=== PATIENT | female | born 1980 | race American Indian/Alaskan Native ===

== ENCOUNTER 2021-12-06 07:28 | Inpatient (IN) | payer SELFPAY ==
[2021-12-02 10:50] LABS: Hematocrit 31.5 % (30.3-42.9); Hemoglobin 9.6 gm/dl (10.1-14.3); Mean Corpuscular HGB Conc 30 % (30-34); Mean Corpuscular Volume 71 fl (79-97); Platelet Count 167 K/mm3 (140-440); Red Blood Count 4.42 M/mm3 (3.65-5.03)
[2021-12-06] MEDS ORDERED: LACTATED RINGERS 1,000 ML ONE ×3 (08:46→12:10)
[2021-12-06] MEDS ORDERED: BICITRA ORAL LIQD 30ML PO NR (08:58)
[2021-12-06] MEDS ORDERED: FAMOTIDINE 20 MG/2 ML INJ IV NR (08:58)
[2021-12-06] MEDS ORDERED: METOCLOPRAMIDE 10 MG/2 ML INJ IV NR (08:58)
[2021-12-06] MEDS ORDERED: LACTATED RINGERS 1,000 ML IV SCH (09:00)
[2021-12-06] MEDS ORDERED: OXYTOCIN DRIP 30 UNITS/500 ML BAG IV SCH ×2 (09:30→12:00)
[2021-12-06 09:56] LABS: Basophils % (Auto) 0.4 % (0.0-1.8); Eosinophils % (Auto) 0.6 % (0.0-4.3); Hematocrit 32.4 % (30.3-42.9); Hemoglobin 9.9 gm/dl (10.1-14.3); Lymphocytes # (Auto) 1.8 K/mm3 (1.2-5.4); Lymphocytes % (Auto) 22.3 % (13.4-35.0); Mean Corpuscular HGB Conc 31 % (30-34); Mean Corpuscular Volume 71 fl (79-97); Monocytes # (Auto) 0.8 K/mm3 (0.0-0.8); Monocytes % (Auto) 9.6 % (0.0-7.3); Platelet Count 153 K/mm3 (140-440); Red Blood Count 4.54 M/mm3 (3.65-5.03)
[2021-12-06] MEDS ORDERED: PRENATAL VIT27-FE FUMARATE-FOLIC ACID VIT TAB PO SCH (10:00)
[2021-12-06] MEDS ORDERED: ceFAZolin/Water 2 GM/20 ML 2 GM/20 ML SYRINGE IV NR (10:00)
--- NOTE | 2021-12-06 10:04 | Anesthesia Consultation ---
Anesthesia Consult and Med Hx Date of service: 12/06/21 - Airway Anesthetic Teeth Evaluation: Good ROM Head & Neck: Adequate Mental/Hyoid Distance: Adequate Mallampati Class: Class II Intubation Access Assessment: Probably Good - Pulmonary Exam CTA: Yes - Cardiac Exam Cardiac Exam: RRR - Pre-Operative Health Status ASA Pre-Surgery Classification: ASA2 Proposed Anesthetic Plan: Spinal - Pulmonary Hx Asthma: No - Cardiovascular System Hx Hypertension: No - Central Nervous System Hx Seizures: No Hx Psychiatric Problems: No - Endocrine Hx Renal Disease: No Hx Hypothyroidism: No Hx Hyperthyroidism: No - Hematic Hx Anemia: No Hx Sickle Cell Disease: No - Other Systems Hx Alcohol Use: No Hx Cancer: No
--- NOTE | 2021-12-06 10:04 | Anesthesia Day of Surgery ---
Anesthesia Day of Surgery - Day of Surgery Patient Examined: Yes Patient H&P Reviewed: Yes Patient is NPO: Yes
--- NOTE | 2021-12-06 10:21 | History and Physical Report ---
History of Present Illness Date of examination: 12/06/21 Date of admission: 12/06/21 07:28 12/06 Chief complaint: Pt. here for Csection History of present illness: 41yo EDC 12/10 @ 39 3/7 weeks. Pt. for repeat Csection. Good movement. No VB, LOF or ctx Past History Past Medical History: no pertinent history Past Surgical History: section (2014) [employer] [employer] [facility] History: abnormal PAP smear Family/Genetic History: none Social history: no significant social history - Obstetrical History Expected Date of Delivery: 12/10/21 Actual Gestation: 39 Week(s) 3 Day(s) : 2 Para: 1 Hx # Term Pregnancies: 1 Number of Living Children: 1 Medications and Allergies Allergies Allergy/AdvReac Type Severity Reaction Status Date / Time No Known Allergies Allergy Unverified 11/30/21 11:22 Home Medications Medication Instructions Recorded Confirmed Last Taken Type Vit-Fe Fumar-FA [ 1 tab PO QDAY 11/30/21 11/30/21 Unknown History Vitamin] Active Meds: Active Medications Citric Acid/Sodium Citrate (Bicitra Oral Liqd 30ml) 30 ml PO ONCE NR Stop: 12/06/21 13:00 Last Admin: 12/06/21 09:31 Dose: 30 ml Famotidine (Famotidine 20 Mg/2 Ml Inj) 20 mg IV ONCE NR Stop: 12/06/21 13:00 Last Admin: 12/06/21 09:31 Dose: 20 mg Lactated Ringer's (Lactated Ringers) 1,000 mls @ 2,250 mls/hr IV PREOP JUSTIN Stop: 12/07/21 09:27 Last Admin: 12/06/21 09:05 Dose: 2,250 mls/hr Oxytocin/Sodium Chloride (Pitocin/Ns 30 Unit/500ml) 30 units in 500 mls @ 0 mls/hr IV TITR JUSTIN; Protocol Stop: 12/07/21 09:00 Cefazolin Sodium (Ancef/Sterile Water 2 Gm/20 Ml) 2 gm in 20 mls @ 80 mls/hr IV PREOP NR; Protocol Stop: 12/06/21 13:00 Metoclopramide HCl (Metoclopramide 10 Mg/2 Ml Inj) 10 mg IV ONCE NR Stop: 12/06/21 13:00 Last Admin: 12/06/21 09:31 Dose: 10 mg Multivitamins/Iron/Calcium ( [id number] Fumarate-Folic Acid Vit Tab) 1 each PO QDAY JUSTIN Review of Systems All systems: negative - Vital Signs Vital signs: Vital Signs Temp Pulse Resp BP Pulse Ox 98.1 F 105 H 16 118/73 99 12/02/21 10:30 12/02/21 10:30 12/02/21 10:30 12/02/21 10:30 12/02/21 10:30 Temp Pulse Resp BP Pulse Ox 98.2 F 88 16 127/80 98 12/06/21 09:42 12/06/21 08:38 12/02/21 10:30 12/06/21 07:57 12/06/21 08:38 - Physical Exam Abdomen: Positive: normal appearance Uterus: Positive: enlarged - Obstetrical FHR: category 1 Uterine Contraction Pattern: Absent Results Result Diagrams: 12/06/21 09:00 Abnormal lab results 12/06/21 Range/Units 09:00 Hgb 9.9 L (10.1-14.3) gm/dl MCV 71 L (79-97) fl MCH 22 L (28-32) pg [place] % (Auto) 9.6 H (0.0-7.3) % All other labs normal. Assessment and Plan A IUP @ 39 3/7 weeks Previous Csection P Repeat Informed consent obtained
[2021-12-06] MEDS ORDERED: ceFAZolin/STERILE WATER 2 GM/20 ML SYRINGE IV ONE (10:30)
[2021-12-06] MEDS ORDERED: KETOROLAC 30 MG/1 ML INJ ONE (10:38)
[2021-12-06] MEDS ORDERED: BUPIVACAINE/PF (0.5%) 5 MG/1 ML 30 ML VIAL INFILTRATI ONE (10:38)
[2021-12-06] MEDS ORDERED: dexAMETHasone 20 MG/5 ML VIAL ONE (10:38)
[2021-12-06] MEDS ORDERED: PHENYLEPHRINE/NS 1,000 MCG/10 ML SYRINGE (OR USE) IV ONE (10:38)
[2021-12-06] MEDS ORDERED: ONDANSETRON 4 MG/2 ML INJ ONE (10:38)
[2021-12-06] MEDS ORDERED: SODIUM CHLORIDE 0.9% IRR 1,500 ML BOTTLE IR ONE (10:40)
[2021-12-06] MEDS ORDERED: WATER FOR IRRIG STERILE 1,500 ML BOTTLE IR ONE (10:40)
[2021-12-06] MEDS ORDERED: ePHEDrine SULFATE 50 MG/1 ML INJ ONE (11:36)
--- NOTE | 2021-12-06 13:36 | Procedure Note ---
OB Delivery Note - Section Postop diagnosis: same section procedure: repeat low transverse Disposition: PACU Complications: none Narrative: Patient for repeat section. Informed consent was obtained. She was taken to the operating room. She was placed in the supine position. She was prepped and draped in the normal sterile fashion. A Woodson catheter was placed. Timeout was done. A Pfannenstiel skin incision was made in the old incision scar. This was then carried down to the underlying layer of fascia. Several bleeding points were noted in the subcutaneous fat which were caute rized. The fascia was incised in the midline and extended laterally using the Stone scissors. Eulogio clamps were placed on the superior aspect of the incision. The stone scissors was used to dissect the rectus muscle from the fascia. Attention was then turned to the lower aspect of the incision. The fascia was grasped with Eulogio clamps elevated and the rectus muscle dissected off. The rectus muscle was then opened using the scalpel. The rectus muscle was then stretched manually. The peritoneum was adherent to the rectus muscle. A bladder blade was placed over the bladder. The vesicouterine peritoneum was then dissected off with the Metzenbaum scissors. The bladder blade was then placed over the bladder flap. A transverse incision was made in the lower uterine segment. Membranes were ruptured. Clear fluid was noted. The infant was noted to be in the vertex position. The infant's head was then delivered without complication. The nares and mouth were suctioned. The remainder of the infant was then delivered without complication. A nuchal cord was reduced. After a 1 minute delayed, the chord. was clamped and cut. The infant was then handed over to the NICU nurses. The placenta was then delivered. The uterus was removed and wrapped in a laparotomy sponge. The uterine incision was then closed with 0 Vicryl suture. 0 Vicryl suture was used to place figures of 8 at all bleeding points. Excellent hemostasis was achceived. The uterus was then replaced into the abdomen. The gutters were cleared of all clots and debris. The posterior cul-de-sac was irrigated and clear of all debris. The uterine incision was then inspected. No bleeding was noted. Surgicel was placed over the incision. All laps and instruments were removed from the abdomen. The muscle was reapproximated with 2-0 Vicryl. The fascia in the midline was noted to be torn vertically. This was repaired using 0 Vicryl suture. 0 Vicryl suture was used to close the fascia in a running fashion. There was some difficulty closing the fascia at the point where there was a tear in the fascia. The subcutaneous fat was closed with 3-0 Vicryl. The skin was closed with leticia. Patient tolerated the procedure well. Sponge laps and needle counts were correct x2. EBL 960 ml Fluids 2 liters Urine output 200ml - Infant A at 1 minute: 8 at 5 minutes: 9 Infant Gender: Female
[2021-12-06] MEDS ORDERED: NALOXONE 0.4 MG/1 ML INJ IV PRN (14:00)
[2021-12-06] MEDS ORDERED: LANOLIN/ZINC/DIMETHICONE (LANSINOH) 7 GM TP PRN (14:00)
[2021-12-06] MEDS ORDERED: WITCH HAZEL/ GLYCERIN PAD TP PRN (14:00)
[2021-12-06] MEDS ORDERED: ACETAMINOPHEN 325 MG TAB PO PRN (15:30)
[2021-12-06] MEDS ORDERED: diphenhydrAMINE 25 MG CAP PO PRN (15:30)
[2021-12-06] MEDS ORDERED: ONDANSETRON 4 MG/2 ML INJ IV PRN (15:30)
[2021-12-06] MEDS ORDERED: PROMETHAZINE 25 MG RECT SUPP PR PRN (15:30)
[2021-12-06] MEDS ORDERED: D5W/LACTATED RINGERS 1,000 ML IV SCH (17:30)
[2021-12-06] MEDS: IBUPROFEN 800 MG TAB PO SCH (17:36)
[2021-12-06] MEDS ORDERED: MAGNESIUM HYDROXIDE (MOM) ORAL LIQD UDC PO PRN (22:00)
[2021-12-07] MEDS: oxyCODONE /ACETAMINOPHEN 5-325MG TAB PO PRN ×2 (00:47→17:48)
[2021-12-07 03:21] LABS: Hematocrit 26.4 % (30.3-42.9); Hemoglobin 8.2 gm/dl (10.1-14.3)
[2021-12-07] MEDS: IBUPROFEN 800 MG TAB PO SCH ×3 (05:33→20:30)
[2021-12-07 07:50] LABS: Hematocrit 24.5 % (30.3-42.9); Hemoglobin 7.8 gm/dl (10.1-14.3)
[2021-12-07] MEDS: PRENATAL VIT27-FE FUMARATE-FOLIC ACID VIT TAB PO SCH ×2 (10:58→10:59)
--- NOTE | 2021-12-07 15:38 | Progress Note ---
Assessment and Plan POD#1 C/S with worsening anemia, symptoms of tiredness, possible anterior wall hematoma 1. Will do CT with contrast of abd and pelvis and possible drainage by IR if same present 2. repeat cbc and transfuse if hgb less than 7 3. Routine post op care Plan of care discussed with pt. All questions encouraged and answered Subjective Date of service: 12/07/21 Principal diagnosis: POD#1 repeat c/s with severe anemia, distended abdomen Interval history: pt admits to feeling tired, passing flatus and pain controlled with meds. Vag bleed like a period. Tolerates regular diet. Objective - Constitutional Vitals: Vital Signs - 12hr 12/07/21 12/07/21 12/07/21 05:04 06:50 08:30 Temperature 98.0 F Pulse Rate 89 92 H Respiratory 18 Rate Blood Pressure 92/67 Blood Pressure 128/70 [Left] O2 Sat by Pulse 96 Oximetry O2 Sat by Pulse 98 Oximetry [ Bilateral Throughout] 12/07/21 12/07/21 08:50 10:59 Temperature 98.2 F Pulse Rate 99 H Respiratory 20 20 Rate Blood Pressure Blood Pressure 128/70 [Left] O2 Sat by Pulse 96 Oximetry O2 Sat by Pulse Oximetry [ Bilateral Throughout] General appearance: Present: well-nourished - Neck Neck: normal ROM - Respiratory Respiratory effort: normal - Breasts Breasts: deferred - Cardiovascular Rhythm: regular Extremities: No edema - Gastrointestinal General gastrointestinal: Present: distended (with large fluid shift in abdomen), other (dressing C/D/I) - Genitourinary Female genitourinary: other (moderate dark red blood per vagina; could not locate fundus thru distended abdomen with possible fluid) - Integumentary Integumentary: warm, dry - Neurologic Neurologic: moves all extremities - Psychiatric Psychiatric: cooperative - Labs CBC & Chem 7: 12/07/21 15:13 Labs: Abnormal lab results 12/07/21 12/07/21 Range/Units 03:10 06:00 Hgb 8.2 L 7.8 L (10.1-14.3) gm/dl Hct 26.4 L D 24.5 L (30.3-42.9) % Medications & Allergies - Medications Allergies/Adverse Reactions: Allergies No Known Allergies Allergy (Unverified 11/30/21 11:22) Home Medications: Home Medications Medication Instructions Recorded Confirmed Last Taken Type Vit-Fe Fumar-FA [ 1 tab PO QDAY 11/30/21 11/30/21 Unknown History Vitamin] Active Medications: Generic Name Dose Route Start Last Admin Trade Name Freq PRN Reason Stop Dose Admin Acetaminophen 650 mg 12/06/21 15:30 Acetaminophen 325 Mg Tab PO Q4H PRN Pain MILD(1-3)/Fever >100.5/VALENZUELA Bisacodyl 10 mg 12/06/21 22:00 Bisacodyl 10 Mg Rect Supp [place] BID PRN Constipation Diphenhydramine HCl 25 mg 12/06/21 15:30 Diphenhydramine 25 Mg Cap PO Q6H PRN Itching Dextrose/Lactated Ringer's 1,000 mls @ 125 mls/hr 12/06/21 17:30 12/06/21 17:36 D5lr IV 125 mls/hr DIRECT JUSTIN Administration Ibuprofen 800 mg 12/06/21 16:00 12/07/21 10:59 Ibuprofen 800 Mg Tab PO 800 mg Q6H JUSTIN Administration Magnesium Hydroxide 30 ml 12/06/21 22:00 Magnesium Hydroxide (Mom) Oral Liqd Udc PO HS PRN Constipation Multi-Ingredient Ointment 1 applic 12/06/21 14:00 Lanolin/Zinc/Dimethicone (Lansinoh) 7 Gm TP PRN PRN dryness/cracking Multivitamins/Iron/Calcium 1 each 12/06/21 18:00 12/07/21 10:59 [id number] Fumarate-Folic Acid Vit Tab PO 1 each QDAY JUSTIN Administration Naloxone HCl 0.1 mg 12/06/21 14:00 Naloxone 0.4 Mg/1 Ml Inj IV Q2MIN PRN Res Rate </= 8 or 02 SAT < 92% Ondansetron HCl 4 mg 12/06/21 15:30 Ondansetron 4 Mg/2 Ml Inj IV Q8H PRN Nausea And Vomiting Oxycodone/Acetaminophen 1 tab 12/06/21 15:30 12/07/21 00:47 Oxycodone /Acetaminophen 5-325mg Tab PO 1 tab Q6H PRN Administration Pain, Moderate (4-6) Promethazine HCl 25 mg 12/06/21 15:30 Promethazine 25 Mg Rect Supp [place] Q6H PRN Nausea And Vomiting Sodium Chloride 10 ml 12/06/21 14:00 Sodium Chloride 0.9% 10 Ml Flush Syringe IV PRN PRN flush Witch Rosa/Glycerin 1 each 12/06/21 14:00 Witch Rosa/ Glycerin Pad TP PRN PRN Hemorrhoids/cleansing/soothing
[2021-12-07 15:49] LABS: Basophils % (Auto) 0.2 % (0.0-1.8); Hematocrit 23.2 % (30.3-42.9); Hemoglobin 7.4 gm/dl (10.1-14.3); Lymphocytes # (Auto) 2.1 K/mm3 (1.2-5.4); Lymphocytes % (Auto) 14.2 % (13.4-35.0); Mean Corpuscular HGB Conc 32 % (30-34); Mean Corpuscular Volume 71 fl (79-97); Monocytes # (Auto) 1.4 K/mm3 (0.0-0.8); Monocytes % (Auto) 9.3 % (0.0-7.3); Platelet Count 122 K/mm3 (140-440); Red Blood Count 3.27 M/mm3 (3.65-5.03); Red Cell Distribution Width 15.5 % (13.2-15.2)
[2021-12-07] MEDS ORDERED: SODIUM CHLORIDE 0.9% 500 ML 500 ML IV NR (16:18)
[2021-12-07 16:50] LABS: Alanine Aminotransferase 12 units/L (7-56); Albumin 2.8 g/dL (3.9-5); BUN/Creatinine Ratio 18; Blood Urea Nitrogen 11 mg/dL (7-17); Calcium 8.9 mg/dL (8.4-10.2); Hemolysis Index 0
--- NOTE | 2021-12-07 18:08 | Event Note ---
Date: 12/07/21 pt had creat done and same wnl therefore pt taken for CT Abd/pelvis and I spoke with Dr. Maynard who added CT angio. Verbal report from Dr. Maynard prelim with no hematoma and therefore I will do serial cbc and transfuse only if hgb less than 7. Will give iron TID, vit C TID and colace BID prn. Plan of care discussed with pt and nurse.
--- NOTE | 2021-12-07 18:11 | Cat Scan Report ---
CTA ABDOMEN AND PELVIS WITHOUT AND WITH IV CONTRAST INDICATION / CLINICAL INFORMATION: rectus sheath hematoma 4 phase. TECHNIQUE: Axial CT images were obtained through the abdomen and pelvis before and after after injection of 100 cc of Omnipaque 350 50 IV contrast. 3 plane MIP / 3D reconstructions were produced. All CT scans at t his location are performed using CT dose reduction for ALARA by means of automated exposure control. COMPARISON: None available. FINDINGS: Trace of basilar pleural effusions and bibasilar volume loss. Evaluation of the lung bases is limited due to respiratory motion artifact. There are small filling defects within the subsegmental branches of the pulmonary arteries of the right lower lobe. The heart is enlarged. No pericardial effusion. Liver, gallbladder, pancreas, spleen, and adrenals are unremarkable. No acute abnormality of the kidn eys. Bladder is partially decompressed. Tiny focus of gas in the bladder is likely related to recent instrumentation. No bladder wall thickening. Enlarged post gravid uterus with endometrial fluid and g as, not unexpected. No significant hematoma. Minimal intraperitoneal free air with subcutaneous stran ding, fluid, and gas of the anterior lower pelvis. Small areas of gas are present within both rectus abdominis muscles. No significant rectus sheath hematoma. Abdominal aorta and major branching vessels normal in caliber without acute abnormality. No acute osseous findings. IMPRESSION: 1. Small filling defects suspected within the subsegmental branches of the pulmonary arteries of the right lower lobe, concerning for pulmonary embolism. Recommend dedicated CTA of the chest for further evaluation. 2. Expected postoperative appearance of the uterus related to recent section. No significant hematoma or active bleed. 3. Trace bibasilar pleural effusions and bibasilar volume loss. CRITICAL RESULT: Time of Discovery (MESSENGER COPY/CDT): 12/07/2021 at 5:00 PM Time of Communication (MESSENGER COPY/CDT): 12/07/2021 at 5:06 PM Licensed Practitioner Receiving Report: Patient's nurse Read-Back Performed: Yes. Signer Name: Keven Miller MD Signed: 12/07/2021 6:07 PM Workstation Name: [id number]
--- NOTE | 2021-12-07 18:23 | Event Note ---
Date: 12/07/21 nurse called me with report from radiology expressing concern for pulm edema in this patient and the need for Chest CT. Order placed and pt to be taken back to CT and I will call hospitalist consult after report received.
[2021-12-07] MEDS: FERROUS SULFATE 325 MG TAB PO SCH (20:30)
[2021-12-07] MEDS: ASCORBIC ACID 500 MG TAB PO SCH (20:30)
[2021-12-07] MEDS: DOCUSATE SODIUM 100 MG CAP PO SCH (22:30)
--- NOTE | 2021-12-07 22:31 | Cat Scan Report ---
CTA CHEST WITH CONTRAST INDICATION / CLINICAL INFORMATION: pulmonary edema. TECHNIQUE: Axial CT images were obtained through the chest after injection of IV contrast. 3 plane DE P and/or 3D reconstructions were produced. All CT scans at this location are performed using CT dose reduction for ALARA by means of automated exposure control. COMPARISON: CTA abdomen and pelvis earlier same day FINDINGS: PULMONARY ARTERIES: Multiple subsegmental pulmonary arterial filling defects noted within the right l ower lobe, left upper lobe and left lower lobe consistent with pulmonary thromboemboli. THORACIC AORTA: No significant abnormality. HEART: Enlarged. No CT evidence of right ventricular strain. CORONARY ARTERY CALCIFICATION: None. MEDIASTINUM / VICKIE: No significant abnormality. PLEURA: Trace right pleural effusion. No pneumothorax. LUNGS: Mild right basilar subsegmental atelectasis. ADDITIONAL FINDINGS: None. UPPER ABDOMEN: No acute findings. SKELETAL STRUCTURES: No significant osseous abnormality. IMPRESSION: 1. Multifocal subsegmental pulmonary emboli as above. No CT evidence of right ventricular strain. 2. Trace right pleural effusion and right basilar atelectasis. CRITICAL RESULT Time of Discovery (MATRIX SUPERVISOR/CDT): 9:15 PM Time of Communication (MATRIX SUPERVISOR/CDT): 9:24 PM Licensed Practitioner Receiving Report: Patient's nurseChiquita Read-Back Performed: Yes. Signer Name: Milton Hamm MD Signed: 12/07/2021 10:26 PM Workstation Name: [id number]
--- NOTE | 2021-12-07 23:38 | Event Note ---
Date: 12/14/21 CC: POD #2 S/P Repeat Delivery HPI: No chest pain or shortness of breath. The patient reports that her right lower extremity (above and below her kneecap) has been swollen during the end of her . CT of the abdomen ordered by Dr. Buck, and radiologist was suspicious for incidental finding of pulmonary embolism. As such, formal CT angiogram of the chest was performed this evening, and pulmonary embolism was confirmed. The patient has no personal or family history of venous thromboembolism. O: CV= tachy rate LUNGS= normal respiratory effort ABD= soft. NT. FF below umbilicus. INC= C/D/I. EXT= (R) edema above kneecap. LABS: D-dimer= >10,000 (H) RADIOLOGY: CTA Chest= multifocal pulmonary embolism (B) lower extremity Dopplers= no deep vein thrombosis IMPRESSION: 1.) POD #2 S/P Repeat delivery 2.) Pulmonary emobolism PLAN: 1.) Start Lovenox 1 mg/kilogram every 12 hours subcutaneously for treatment of acute pulmonary embolism. 2.) Continue Lovenox for at least 6 weeks . 3.) The patient should follow-up with a director correctional agency for evaluation of inherited thrombophilia.
[2021-12-08] MEDS: ENOXAPARIN 100 MG/1 ML INJ SUB-Q SCH ×3 (00:08→23:48)
[2021-12-08] MEDS ORDERED: SODIUM CHLORIDE 0.9% 500 ML 500 ML IV ONE (01:13)
--- NOTE | 2021-12-08 02:54 | Vascular Lab Report ---
DUPLEX DOPPLER LOWER EXTREMITY VEINS, BILATERAL INDICATION / CLINICAL INFORMATION: Pulmonary embolism. TECHNIQUE: Duplex doppler imaging was performed through the veins of both lower extremities using daniel ous compression and other maneuvers. COMPARISON: None available. FINDINGS: RIGHT COMMON FEMORAL VEIN: Negative. RIGHT FEMORAL VEIN: Negative. RIGHT POPLITEAL VEIN: Negative. RIGHT CALF VEINS: Negative. LEFT COMMON FEMORAL VEIN: Negative. LEFT FEMORAL VEIN: Negative. LEFT POPLITEAL VEIN: Negative. LEFT CALF VEINS: Negative. ADDITIONAL FINDINGS: None. IMPRESSION: 1. No sonographic evidence for DVT in either lower extremity. Signer Name: Griffin Argueta II, MD Signed: 12/08/2021 2:50 AM Workstation Name: [id number]
[2021-12-08] MEDS: IBUPROFEN 800 MG TAB PO SCH ×4 (06:02→23:54)
[2021-12-08 08:36] LABS: Basophils % (Auto) 0.3 % (0.0-1.8); Eosinophils # (Auto) 0.1 K/mm3 (0.0-0.4); Eosinophils % (Auto) 0.5 % (0.0-4.3); Hematocrit 26.6 % (30.3-42.9); Hemoglobin 8.5 gm/dl (10.1-14.3); Lymphocytes # (Auto) 3.8 K/mm3 (1.2-5.4); Lymphocytes % (Auto) 28.6 % (13.4-35.0); Mean Corpuscular HGB Conc 32 % (30-34); Mean Corpuscular Volume 73 fl (79-97); Monocytes # (Auto) 1.1 K/mm3 (0.0-0.8); Monocytes % (Auto) 8.1 % (0.0-7.3); Platelet Count 135 K/mm3 (140-440); Red Blood Count 3.66 M/mm3 (3.65-5.03); Red Cell Distribution Width 16.3 % (13.2-15.2)
[2021-12-08] MEDS: ASCORBIC ACID 500 MG TAB PO SCH ×3 (08:43→20:08)
[2021-12-08] MEDS: FERROUS SULFATE 325 MG TAB PO SCH ×3 (08:44→20:08)
--- NOTE | 2021-12-08 10:39 | Post Anesthesia Evaluation ---
- Post Anesthesia Evaluation Patient Participated: Yes Airway Patent: Yes Stable Respiratory Function: Yes Nausea/Vomiting: No Temp > 96.8F: Yes Pain Manageable: Yes Adequeate Hydration: Yes Anesthesia Complications: No Block Receding Appropriately: Yes
[2021-12-08] MEDS: DOCUSATE SODIUM 100 MG CAP PO SCH ×2 (11:36→22:09)
[2021-12-08] MEDS: PRENATAL VIT27-FE FUMARATE-FOLIC ACID VIT TAB PO SCH (11:36)
--- NOTE | 2021-12-08 11:37 | Consultation ---
History of Present Illness - Reason for Consult Consult date: 12/08/21 Reason for consult: [place] 15 - Chief Complaint Chief complaint: Pt. here for Csection - History of Present Psychiatric Illness The patient is 41 year old female with no psychiatric history who was consulted for [place] score of 15. The patient was seen this morning. The patient is calm, alert and oriented x3. She states she is doing well but admits felling sad and lonely sometimes. The patient is naive to psychotropic medications. She denies being excessively anxious. The patient denies suicidal/homicidal ideation and denies hallucinations. PSYCHIATRIC HISTORY: Diagnoses: Denies Suicide attempts or Self-harm behavior:Denies Prior psychiatric hospitalizations: Denies Substance Abuse history: Denies Previous psychiatric medications tried: Denies Outpatient treatment: Denies PAST MEDICAL HISTORY: None reported or document Family Psychiatric History: None reported or documented SOCIAL HISTORY Marital Status:Single Living Arrangements: Lives with son Employment Status: employed Access to guns/weapons: Denies Education: [employer] History of Abuse: Denies Legal History: unknown REVIEW OF SYSTEMS Constitutional: Negative for weight loss ENT: Negative for stridor Respiratory: Negative for cough or hemoptysis All other systems reviewed and are negative MENTAL STATUS EXAMINATION General Appearance and Behavior: Age appropriate, good hygiene, wearing appropriate clothes. calm, cooperative Cooperation: Cooperative Psychomotor Behavior: Psychomotor normal Mood: "ok" Affect and affective range: Congruent with stated mood Thought Process: Goal directed Thought Content: Reality oriented Speech: normal tone and pace Suicidal Ideation: Denies Homicidal Ideation:Denies Hallucinations: Denies Delusions: None elicited Impulse Control: limited Insight and Judgment: Limited Memory: Limited Attention: attentive Orientation: a/ox3 Assessment (1)Mental health evaluation Current Visit: Yes Status: Acute Treatment Plan Risks, benefits and alternatives of medications discussed with the patient, questions answered and consent obtained from patient. PSYCHOTHERAPY: Supportive psychotherapy provided MEDICAL: Per primary team DELIRIUM PRECAUTIONS: Please re-orient patient frequently, keep lights on during the day, and minimize benzodiazepines and opiates as these medications could worsen patient's confusion. 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 Ror Engineer will provide patient with psychiatric outpatient resources. FOLLOW-UP: Will sign off. Thanks [facility] staffed with Dr. Jo Medications and Allergies Medications and Allergies Allergies Allergy/AdvReac Type Severity Reaction Status Date / Time No Known Allergies Allergy Verified 12/07/21 20:09 Home Medications Medication Instructions Recorded Confirmed Last Taken Type Vit-Fe Fumar-FA [ 1 tab PO QDAY 11/30/21 11/30/21 Unknown History Vitamin] Active Meds: Active Medications Acetaminophen (Acetaminophen 325 Mg Tab) 650 mg PO Q4H PRN PRN Reason: Pain MILD(1-3)/Fever >100.5/VALENZUELA Last Admin: 12/08/21 01:36 Dose: 650 mg Ascorbic Acid (Ascorbic Acid 500 Mg Tab) 500 mg PO TID [facility] Last Admin: 12/08/21 08:43 Dose: 500 mg Bisacodyl (Bisacodyl 10 Mg Rect Supp) 10 mg HI BID PRN PRN Reason: Constipation Diphenhydramine HCl (Diphenhydramine 25 Mg Cap) 25 mg PO Q6H PRN PRN Reason: Itching Last Admin: 12/08/21 01:36 Dose: 25 mg Docusate Sodium (Docusate Sodium 100 Mg Cap) 100 mg PO BID [facility] Last Admin: 12/07/21 22:30 Dose: 100 mg Enoxaparin Sodium (Enoxaparin 100 Mg/1 Ml Inj) 100 mg SUB-Q Q12H [facility]; Protocol Last Admin: 12/08/21 00:08 Dose: 100 mg Ferrous Sulfate (Ferrous Sulfate 325 Mg Tab) 325 mg PO TID [facility] Last Admin: 12/08/21 08:44 Dose: 325 mg Ibuprofen (Ibuprofen 800 Mg Tab) 800 mg PO Q6H [facility] Last Admin: 12/08/21 06:02 Dose: 800 mg Magnesium Hydroxide (Magnesium Hydroxide (Mom) Oral Liqd Udc) 30 ml PO HS PRN PRN Reason: Constipation Multi-Ingredient Ointment (Lanolin/Zinc/Dimethicone (Lansinoh) 7 Gm) 1 applic TP PRN PRN PRN Reason: dryness/cracking Multivitamins/Iron/Calcium ( Ucl39-Ur Fumarate-Folic Acid Vit Tab) 1 each PO QDAY [facility] Last Admin: 12/07/21 10:59 Dose: 1 each Naloxone HCl (Naloxone 0.4 Mg/1 Ml Inj) 0.1 mg IV Q2MIN PRN PRN Reason: Res Rate </= 8 or 02 SAT < 92% Ondansetron HCl (Ondansetron 4 Mg/2 Ml Inj) 4 mg IV Q8H PRN PRN Reason: Nausea And Vomiting Oxycodone/Acetaminophen (Oxycodone /Acetaminophen 5-325mg Tab) 1 tab PO Q6H PRN PRN Reason: Pain, Moderate (4-6) Last Admin: 12/07/21 17:48 Dose: 1 tab Sodium Chloride (Sodium Chloride 0.9% 10 Ml Flush Syringe) 10 ml IV PRN PRN PRN Reason: flush Witch Rosa/Glycerin (Witch Rosa/ Glycerin Pad) 1 each TP PRN PRN PRN Reason: Hemorrhoids/cleansing/soothing Mental Status Exam - Vital signs Last Vital Signs Temp 98.2 F 12/08/21 10:59 Pulse 83 12/08/21 08:38 Resp 18 12/08/21 08:38 BP 125/82 12/08/21 08:38 Pulse Ox 98 12/08/21 09:00 Results Result Diagrams: 12/08/21 07:46 12/07/21 16:12 Abnormal lab results 12/06/21 12/07/21 12/07/21 Range/Units 09:00 15:13 16:12 WBC 14.9 H (4.5-11.0) K/mm3 RBC 3.27 L (3.65-5.03) M/mm3 Hgb 7.4 L (10.1-14.3) gm/dl Hct 23.2 L (30.3-42.9) % MCV 71 L (79-97) fl MCH 23 L (28-32) pg RDW 15.5 H (13.2-15.2) % Plt Count 122 L (140-440) K/mm3 [place] % (Auto) 9.3 H (0.0-7.3) % [place] # (Auto) 1.4 H (0.0-0.8) K/mm3 Seg Neutrophils % 76.3 H (40.0-70.0) % Seg Neutrophils # 11.4 H (1.8-7.7) K/mm3 D-Dimer (0-234) ng/mlDDU Sodium 135 L (137-145) mmol/L Carbon Dioxide 18 L (22-30) mmol/L Glucose 106 H (65-100) mg/dL Total Protein 5.5 L (6.3-8.2) g/dL Albumin 2.8 L (3.9-5) g/dL Crossmatch See Detail 12/08/21 12/08/21 Range/Units 00:31 07:46 WBC 13.4 H (4.5-11.0) K/mm3 RBC (3.65-5.03) M/mm3 Hgb 8.5 L (10.1-14.3) gm/dl Hct 26.6 L (30.3-42.9) % MCV 73 L (79-97) fl MCH 23 L (28-32) pg RDW 16.3 H (13.2-15.2) % Plt Count 135 L (140-440) K/mm3 [place] % (Auto) 8.1 H (0.0-7.3) % [place] # (Auto) 1.1 H (0.0-0.8) K/mm3 Seg Neutrophils % (40.0-70.0) % Seg Neutrophils # 8.4 H (1.8-7.7) K/mm3 D-Dimer > 26648 H (0-234) ng/mlDDU Sodium (137-145) mmol/L Carbon Dioxide (22-30) mmol/L Glucose (65-100) mg/dL Total Protein (6.3-8.2) g/dL Albumin (3.9-5) g/dL Crossmatch All other labs normal.
--- NOTE | 2021-12-08 13:40 | Progress Note ---
Assessment and Plan A S/p Section POD#3 Pulmonary Embolism Anemia Hematology consult needed Elevated score on depression scale Pt. currently without insurance P Pt. currently on Lovenox. Asymptomatic. Pt. 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 Will attempt to make appt. for outpt. f/u Pysch consult obtained. Resources given for f/u as an outpatient. Pt. won't be able to obtain lovenox secondary to no insurance. Social Service consult. Will discharge pt. once this is arrange. Pt. currently stable Continue PO care. Subjective - Subjective Date of service: 12/08/21 Principal diagnosis: S/p Csection POD #3 Interval history: Pt. s/p Csection POD # 3. Diagnosed with a pulmonary embolism Patient reports: appetite normal, voiding normally, pain well controlled (Pain at incision site relieved by pain meds.), flatus, other (Denies shortness of breath, chest pain, dizziness or weakness. Normal lochia.) Objective - Vital Signs Latest vital signs: Vital Signs Temp Pulse Resp BP BP Pulse Ox Pulse Ox 12/08/21 10:59 98.2 F 12/08/21 09:00 98 12/08/21 08:38 99.0 F 83 18 125/82 98 12/08/21 07:02 18 12/08/21 06:02 18 12/08/21 04:22 98.6 F 86 18 125/78 100 12/08/21 03:52 98.6 F 85 18 122/70 100 12/08/21 03:22 98.4 F 74 18 126/77 98 12/08/21 02:52 98 F 82 18 126/74 100 12/08/21 02:36 18 12/08/21 02:22 98 F 78 16 133/75 100 12/08/21 02:07 98.1 F 88 18 101/54 100 12/08/21 01:36 18 12/08/21 00:40 98.6 F 92 H 18 113/76 98 12/07/21 21:30 18 12/07/21 20:30 20 12/07/21 20:00 100 12/07/21 18:48 18 12/07/21 17:48 20 12/07/21 15:38 98.2 F 95 H 20 102/65 99 Intake and Output 12/07/21 12/08/21 12/08/21 23:59 07:59 15:59 Intake Total 600 735 720 Balance 600 735 720 Intake: IV 5 Right Forearm 5 Oral 480 480 Intake, Free Water 120 480 240 Blood Product 250 Leukoreduced Red Blood 250 Cells Unit [id number] Other: Total, Intake Amount 120 240 # Voids Void 1 1 1 - Exam Cardiovascular: Present: Regular rate Lungs: Present: Clear to auscultation Abdomen: Present: soft, distention Uterus: Present: firm, fundal height below umbilicus Extremities: Present: normal, edema (+1) - Labs Labs: Abnormal lab results 12/06/21 12/07/21 12/07/21 Range/Units 09:00 15:13 16:12 WBC 14.9 H (4.5-11.0) K/mm3 RBC 3.27 L (3.65-5.03) M/mm3 Hgb 7.4 L (10.1-14.3) gm/dl Hct 23.2 L (30.3-42.9) % MCV 71 L (79-97) fl MCH 23 L (28-32) pg RDW 15.5 H (13.2-15.2) % Plt Count 122 L (140-440) K/mm3 [place] % (Auto) 9.3 H (0.0-7.3) % [place] # (Auto) 1.4 H (0.0-0.8) K/mm3 Seg Neutrophils % 76.3 H (40.0-70.0) % Seg Neutrophils # 11.4 H (1.8-7.7) K/mm3 D-Dimer (0-234) ng/mlDDU Sodium 135 L (137-145) mmol/L Carbon Dioxide 18 L (22-30) mmol/L Glucose 106 H (65-100) mg/dL Total Protein 5.5 L (6.3-8.2) g/dL Albumin 2.8 L (3.9-5) g/dL Crossmatch See Detail 12/08/21 12/08/21 Range/Units 00:31 07:46 WBC 13.4 H (4.5-11.0) K/mm3 RBC (3.65-5.03) M/mm3 Hgb 8.5 L (10.1-14.3) gm/dl Hct 26.6 L (30.3-42.9) % MCV 73 L (79-97) fl MCH 23 L (28-32) pg RDW 16.3 H (13.2-15.2) % Plt Count 135 L (140-440) K/mm3 [place] % (Auto) 8.1 H (0.0-7.3) % [place] # (Auto) 1.1 H (0.0-0.8) K/mm3 Seg Neutrophils % (40.0-70.0) % Seg Neutrophils # 8.4 H (1.8-7.7) K/mm3 D-Dimer > 74467 H (0-234) ng/mlDDU Sodium (137-145) mmol/L Carbon Dioxide (22-30) mmol/L Glucose (65-100) mg/dL Total Protein (6.3-8.2) g/dL Albumin (3.9-5) g/dL Crossmatch
[2021-12-09] MEDS: IBUPROFEN 800 MG TAB PO SCH ×3 (05:48→17:54)
[2021-12-09] MEDS: ENOXAPARIN 100 MG/1 ML INJ SUB-Q SCH (11:37)
[2021-12-09] MEDS: FERROUS SULFATE 325 MG TAB PO SCH ×4 (11:38→21:24)
[2021-12-09] MEDS: PRENATAL VIT27-FE FUMARATE-FOLIC ACID VIT TAB PO SCH (11:38)
[2021-12-09] MEDS: DOCUSATE SODIUM 100 MG CAP PO SCH ×2 (11:38→21:24)
[2021-12-09] MEDS: ASCORBIC ACID 500 MG TAB PO SCH ×4 (11:39→21:24)
--- NOTE | 2021-12-09 11:39 | Progress Note ---
Assessment and Plan A: POD# 4 Pulmonary Embolism Asymptomatic Anemia P: Follow Routine PostOp Orders Continue Lovenox as ordered Continue PO FeSO4 Awaiting [employer] Consult and Emergency Medicaid Subjective - Subjective Date of service: 12/09/21 Principal diagnosis: S/p Csection POD #3 Patient reports: appetite normal, voiding normally, pain well controlled, flatus, ambulating normally, other (States she feels well and ready for discharge home) [place]: doing well Objective - Vital Signs Latest vital signs: Vital Signs Temp Pulse Resp BP Pulse Ox Pulse Ox 12/09/21 08:11 98.0 F 71 18 121/71 97 12/09/21 06:48 18 12/09/21 05:48 18 12/09/21 00:54 18 12/08/21 23:54 18 12/08/21 23:39 98.6 F 82 18 119/73 96 12/08/21 20:00 98 12/08/21 16:29 98.7 F 84 18 131/78 99 Intake and Output 12/08/21 12/09/21 12/09/21 22:59 06:59 14:59 Intake Total 1080 240 Balance 1080 240 Intake: Oral 600 240 Intake, Free Water 480 Other: Total, Intake Amount 240 120 # Voids Void 1 1 - Exam Breasts: Present: normal Cardiovascular: Present: Regular rate Lungs: Present: Clear to auscultation, Normal air movement Abdomen: Present: normal appearance, soft, normal bowel sounds Uterus: Present: normal, firm, fundal height below umbilicus Extremities: Present: edema (+1 bilateral pedal) Incision: Present: normal, dry, intact, other (Neversink in Place) - Labs Labs: Abnormal lab results 12/06/21 Range/Units 09:00 Crossmatch See Detail
[2021-12-09] MEDS: oxyCODONE /ACETAMINOPHEN 5-325MG TAB PO PRN (21:23)
[2021-12-10] MEDS: ENOXAPARIN 100 MG/1 ML INJ SUB-Q SCH ×2 (00:02→12:45)
[2021-12-10] MEDS: IBUPROFEN 800 MG TAB PO SCH ×3 (04:00→14:46)
[2021-12-10] MEDS: ASCORBIC ACID 500 MG TAB PO SCH ×2 (09:44→14:46)
[2021-12-10] MEDS: DOCUSATE SODIUM 100 MG CAP PO SCH (09:44)
[2021-12-10] MEDS: FERROUS SULFATE 325 MG TAB PO SCH ×2 (09:44→14:46)
[2021-12-10] MEDS: PRENATAL VIT27-FE FUMARATE-FOLIC ACID VIT TAB PO SCH (09:44)
--- NOTE | 2021-12-10 13:39 | Progress Note ---
Assessment and Plan A: /postop day 5 S/P repeat LTCS. Anemia. Pulmonary embolism. P: Dr. Casey orders to discharge patient home today. Discussed with patient /postop discharge instructions and warning signs. Advised patient to continue Lovenox at home as ordered (patient has medication already). Advised patient to continue taking her vitamin and iron supplements at home. Advised patient to avoid intercourse, lifting, housework, driving. Advised patient to follow up with [facility] on Monday12/13/21. Ad vised patient to follow up with outpatient psych and PCP. Warning signs discussed with patient. Patient voiced understanding of all instructions. Subjective - Subjective Date of service: 12/10/21 Principal diagnosis: POD 5 S/P repeat LTCS; pulmonary embolism Interval history: Dr. Casey orders to discharge patient home today. Patient has Lovenox medication already. Patient denies headache, dizziness, chest pain, shortness of breath, leg pain. Patient is voiding without difficulty. Reports small amount of lochia. Patient reports: appetite normal, voiding normally, pain well controlled, flatus, ambulating normally, no dizzy ambulation, no nauseated [place]: doing well, bottle feeding Objective - Vital Signs Latest vital signs: Vital Signs Temp Pulse Resp BP Pulse Ox Pulse Ox 12/10/21 09:04 97.9 F 71 18 127/77 98 12/10/21 08:17 97.9 F 88 18 136/90 98 12/10/21 00:50 98.1 F 74 20 110/66 95 12/09/21 21:23 18 12/09/21 20:00 98 12/09/21 17:17 98.3 F 81 18 139/76 98 Intake and Output 12/09/21 12/10/21 12/10/21 23:59 07:59 15:59 Intake Total 240 240 Balance 240 240 Intake: Oral 240 240 Other: Total, Intake Amount 240 240 # Voids Void 1 1 - Exam Cardiovascular: Present: Regular rate Lungs: Present: Clear to auscultation Abdomen: Present: normal appearance, soft, normal bowel sounds. Absent: distention, tenderness, guarding, rigidity Uterus: Present: normal, firm, fundal height below umbilicus. Absent: bogginess, tenderness Extremities: Absent: tenderness Incision: Present: dry, intact
--- NOTE | 2021-12-10 13:49 | Discharge Summary ---
Providers - Providers Date of Admission: 12/06/21 07:28 Date of discharge: 12/10/21 Attending physician: MARIAJOSE ROCHA MD 12/07/21 16:16 Consult to Interventional Radiology [CONS] Urgent Consulting Provider: VILMA HERNANDEZ Reason For Exam: worsen anemia, post op Day#1, CT abd/pelvis ordere Notified:: Dr. Maynard's nurse 12/08/21 12:58 Consult to Case Management [CONS] Stat Services Needed at Discharge: Other Notified:: attmepted contact, no answer. Phone number called:: [phone] Was contact made?: No Time called:: 13:00 Additional Physician Instructions: pt needs help to obtain emergency medical insurance. 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 Hospitalization Reason for admission: section Delivery: Procedure: repeat low transverse Incision: normal, dry, intact complications: other (pulmonary embolism) Discharge diagnosis: IUP at term delivered baby: female Pertinent studies: Labs, CT Hospital course: Stable hospital course Condition at discharge: Good Disposition: 01 HOME / SELF CARE / HOMELESS - Discharge Diagnoses (1) Term delivered Status: Acute (2) Anemia Status: Acute (3) Pulmonary embolism Status: Acute Plan - Provider Discharge Summary Activity: routine, no sex for 6 weeks, no heavy lifting 4 weeks, no strenuous exercise Diet: routine Instructions: routine Additional instructions: Continue taking Lovenox at home as ordered. Continue taking your vitamin and iron supplement at home. Follow up at [facility] clinic on Monday12/13/21. Follow up with outpatient psych and follow up with your PCP as soon as possible. Call your doctor immediately for: * Fever > 100.5 * Heavy vaginal bleeding ( >1 pad per hour) * Severe persistent headache * Shortness of breath * Reddened, hot, painful area to leg or breast * Drainage or odor from incision. * Keep incision clean and dry at all times and follow doctor's instructions regarding bathing/showering - Follow up plan Follow up: INDRA JUSTIN MD [Primary Care Provider] - 12/13/21 Forms: [facility] Discharge Summary
[2021-12-10 17:46] VITALS: BP 126/72
== END 2021-12-10 17:15 | disposition home or self-care (01) | DRG 786 ==
LOC: APU 07:28 → OB 14:08
PROVIDERS: ADMIT Obstetrics & Gynecology; ATTEND Obstetrics & Gynecology
PROC: 10D00Z1 Extraction of Products of Conception, Low, Open Approach (ICD-10-PCS; principal; 2021-12-06)
DX: O34.211 Maternal care for low transverse scar from previous cesarean delivery (principal); O88.23 Thromboembolism in the puerperium; Z3A.39 39 weeks gestation of pregnancy; Z37.0 Single live birth; Z20.822 Contact with and (suspected) exposure to COVID-19; O90.81 Anemia of the puerperium
CPT/HCPCS: 36415; 71275; 74174; 80053; 85014; 85018; 85025; 85027; 85379; 86592; 86850; 86900; 86901; 86920; 93970; 99211; G0378; J3490; J7060; J7121; G0463; J0690; J1100; J1650; J1885; J2370; J2405; J2765; J7040; J7120; P9016; Q9967; U0003